=== PATIENT | female | born 1965 | race Native Hawaiian/Other Pacific Islander ===

== ENCOUNTER 2018-07-27 11:07 | Outpatient (CLI) | payer BC ==
[2018-07-27 14:15] LABS: POTASSIUM 4.1 mmol/L (3.6-5.2)
== END 2018-07-27 22:52 | disposition home or self-care (01) ==
LOC: LAB 11:07
PROVIDERS: Thoracic Surgery (Cardiothoracic Vascular Surgery)
DX: Z79.2 Long term (current) use of antibiotics (principal); L03.221 Cellulitis of neck
CPT/HCPCS: 80048; 80202

== ENCOUNTER 2018-08-06 10:49 | Outpatient (CLI) | payer BC | END 2018-08-06 19:42 | disposition home or self-care (01) | LOC: LAB 10:49 | PROVIDERS: Thoracic Surgery (Cardiothoracic Vascular Surgery) | DX: L03.221 Cellulitis of neck (principal); E11.9 Type 2 diabetes mellitus without complications; I25.10 Atherosclerotic heart disease of native coronary artery without angina pectoris; Z45.2 Encounter for adjustment and management of vascular access device | CPT/HCPCS: 36415; 80048; 80202 ==